=== PATIENT | male | born 1945 | race Two or more races ===

== ENCOUNTER 2018-07-06 09:13 | Emergency (ER) | payer MEDICARE, OTHER ==
[~2018-07-06] VITALS: Ht 167.6 cm; Wt 86.0 kg
[2018-07-06 09:22] VITALS: Ht 167.6 cm; Wt 86.0 kg
[2018-07-06] MEDS ORDERED: ASPIRIN 325 MG TAB PO STA (09:34)
[2018-07-06] MEDS ORDERED: SOD CHLORIDE 0.9% 100 ML ONE (09:36)
[2018-07-06] MEDS ORDERED: IODIXANOL LOCM 100 ML BTL ONE (09:36)
[2018-07-06] MEDS ORDERED: SOD CHLORIDE 0.9% 860 ML IV ONE (10:00)
--- NOTE | 2018-07-06 11:19 | STROKE ---
Date/Time of Note Date/Time of Note DATE: 07/06/18 TIME: 12:05 Patient Information General Arrival Date Age 73 Gender male Weight 86 kg POC Glucose Glucose Result Bedside Glucose - 72 Hours Test 07/06/18 09:25 07/06/18 10:00 Bedside Glucose 166 mg/dL (70-220) 141 mg/dL (70-220) Vital Signs Vital Signs Vital Signs Date Temp Pulse Resp B/P (MAP) Pulse Ox O2 O2 Flow FiO2 Time Delivery Rate 07/06/18 Nasal 09:46 Cannula 07/06/18 97.7 70 18 175/84 97 09:22 (114) Patient History Past Medical History Diabetes Current Medications Allergies: Coded Allergies: No Known Allergy (Verified Allergy, Mild, 04/19/08) Labs Coagulation Labs: Coagulation Test 07/06/18 09:40 Activated Partial Thromboplast Time 23.3 Sec (23.0-35.0) History & Physical Patient History Notes Pt Hx Reviewed History of Present Illness 73 y/o M noted left hand numbness beginning last night at midnight. Awoke this morning and noted L forearm numbness as well. Seen by Primary MD and referred to ER for potential stroke. BG reportedly 500s. Denies Headache, speech or vision difficulty, no incoordination or weakness. No confusion. In ER, teleneuro examination significant only for L hand and forearm decreased sensation NIH Stroke Scale NIH Stroke Scale Facig0Sd l4d LOC Questions: [place]ekak5v LOC Commands: Bscjj5g t Gaze: Oxrld8n Dpprb7m alsy: Caqrq1v rm - Left: Jpkrt1i ight: Pwdym8t eft: Cvnaa4l ight: Xjueb9l Dxgns8i Tavca4i est Language: Rrpge0u holland: Whwgb8y Wlqrw3b ate/Time Recorded DATE: 07/06/18 TIME: 11:15 Submitted By Veronika Gruber t-PA Imaging Review Imaging Reviewed: Yes Date/Time Imaging Reviewed DATE: 07/06/18 TIME: 12:[address] brain unremarkable; CTA/P reportedly shows diffuse atherosclerotic vascular disease, small meningioma, no LVO per radiologist report t-PA Administration Weight 86 kg Recommedation submitted by Veronika Gruber Reason t-PA not Recommended Time of presentation outside therapeutic window t-PA Not Recommended Date/Time Admit for stroke workup to include MRI brain. Telemetry monitoring. Permissive HTN, keep SBP<220 and DBP<110. 2DECHO. Local Neurology when available. Recommendations Recommendation [id number] Diagnostic Labs: Lsuqa7y Lipid Proile Hgb A1C CMP CBC w/Diff Coags Urinaysis Jizpa5Su Therapy: Smgvi0k Physical Therapy Occupational Therapy Vstcp8Ys Misc. Recommendations: Dzouv3q Pnumatic Compression Devices Stroke Education Smoking Education VERONIKA GRUBER MD July 06, 2018 10:19
--- NOTE | 2018-07-06 11:30 | ERD ---
ER Documentation Chief Complaint Chief Complaint hyperglycemia also states left hand numbness HPI This is a 73-year-old male with a past medical history of jhx-rddiwhw-tzdhkdgls diabetes mellitus. The patient indicates that at midnight yesterday evening, 9/2 hours prior to arrival, the patient developed numbness and tingling of his left hand and forearm. Indicated he took his blood glucose and it was elevated at greater than 500. He has not experienced any polyuria or polydipsia. He stated at that time he did double the dose of his antidiabetic medication. He slept comfortably when he awoke this morning he stated he felt the numbness of his left hand and arm still present. He indicated it had not worsened. He denied headache. He denied any weaknesses of his upper or lower extremities. He said no recent fever shaking or chills. He went to his primary care physician's office Dr. Tong. Dr. Gomez and immediately sent the patient to the emergency department to be further evaluated. ROS All systems reviewed and are negative except as per history of present illness. Allergies Allergies: Coded Allergies: No Known Allergy (Verified Allergy, Mild, 04/19/08) PMhx/Soc History of Surgery: No Anesthesia Reaction: No Hx Neurological Disorder: No Hx Respiratory Disorders: No Hx Cardiac Disorders: No Hx Psychiatric Problems: No Hx Miscellaneous Medical Probl: No Hx Alcohol Use: No Hx Substance Use: No Hx Tobacco Use: No Smoking Status: Never smoker Physical Exam Vitals Vital Signs Date Temp Pulse Resp B/P (MAP) Pulse Ox O2 O2 Flow FiO2 Time Delivery Rate 07/06/18 Nasal 09:46 Cannula 07/06/18 97.7 70 18 175/84 97 09:22 (114) Physical Exam Constitutional:Well-developed. Well-nourished. HEENT:Normocephalic. Atraumatic.Pupils were equal round reactive to light. Moist mucous membranes.No tonsillar exudates. Neck: No nuchal rigidity. No lymphadenopathy. No posterior cervical spine tenderness or step-offs. Respiratory: Not using accessory muscles of respiration.Lungs were clear to auscultation bilaterally. No rhonchi. No rales. No wheezing. Cardiovascular: Regular rate regular rhythm.No murmurs. No rubs were appre ciated.S1, S2 normal. Distal pulses are palpable 2+ bilaterally. GI: Abdomen was soft. Nontender. Non Distended. No pulsatile abdominal masses or bruits. No rebound. No guarding. Bowel sounds were present and normal. Muscle skeletal: Full range of motion of both the upper and lower extremities bilaterally.Normal muscle tone.No assymetrical calf tenderness or swelling. Skin: No petechia, no purpura. No lesions on the palms or the soles of the feet. No maculopapular rash. NEURO: Patient was alert, awake, orientated x3.No facial droop. Gait observed and normal with no ataxia.Speech had regular rate and rhythm. No focal neurological deficits. Romberg sign negative. No pronator drift. Sensation to sharp and dull slightly diminished on the dorsal aspect of the left hand. Result Diagram: 07/06/1840 07/06/1840 Results 24 hrs Laboratory Tests Test 07/06/18 09:25 07/06/18 09:40 07/06/18 10:00 Bedside Glucose 166 mg/dL 141 mg/dL White Blood Count 12.5 10^3/ul Red Blood Count 5.01 10^6/ul Hemoglobin 15.3 g/dl Hematocrit 45.0 % Mean Corpuscular Volume 89.8 fl Mean Corpuscular Hemoglobin 30.5 pg Mean Corpuscular Hemoglobin Concent 34.0 g/dl Red Cell Distribution Width 13.3 % Platelet Count 223 10^3/UL Mean Platelet Volume 9.4 fl Immature Granulocytes % 0.900 % Neutrophils % 67.6 % Lymphocytes % 23.2 % Monocytes % 7.6 % Eosinophils % 0.3 % Basophils % 0.4 % Nucleated Red Blood Cells % 0.0 /100WBC Immature Granulocytes # 0.110 10^3/ul Neutrophils # 8.4 10^3/ul Lymphocytes # 2.9 10^3/ul Monocytes # 0.9 10^3/ul Eosinophils # 0.0 10^3/ul Basophils # 0.1 10^3/ul Nucleated Red Blood Cells # 0.0 10^3/ul Prothrombin Time 12.6 Sec Prothrombin Time Ratio 1.0 INR International Normalized Ratio 0.93 Activated Partial Thromboplast Time 23.3 Sec Sodium Level 140 mmol/L Potassium Level 4.5 mmol/L Chloride Level 101 mmol/L Carbon Dioxide Level 28 mmol/L Anion Gap 11 Blood Urea Nitrogen 30 mg/dl Creatinine 1.47 mg/dl Est Glomerular Filtrat Rate mL/min mL/min Glucose Level 154 mg/dl Hemoglobin A1c 8.1 % Calcium Level 10.1 mg/dl Phosphorus Level 4.2 mg/dl Magnesium Level 1.8 mg/dl Total Bilirubin 0.2 mg/dl Direct Bilirubin 0.00 mg/dl Indirect Bilirubin 0.2 mg/dl Aspartate Amino Transf (AST/SGOT) 13 IU/L Alanine Aminotransferase (ALT/SGPT) 15 IU/L Alkaline Phosphatase 54 IU/L Creatine Kinase 44 IU/L Creatine Kinase Index 2.0 Creatinine Kinase MB (Mass) 0.87 ng/ml Troponin I < 0.012 ng/ml Total Protein 7.9 g/dl Albumin 4.5 g/dl Globulin 3.40 g/dl Albumin/Globulin Ratio 1.32 Triglycerides Level 438 mg/dl Cholesterol Level 198 mg/dl LDL Cholesterol, Calculated 68 mg/dl HDL Cholesterol 42 mg/dl Cholesterol/HDL Ratio 4.7 RATIO Ethyl Alcohol Level < 10.0 mg/dl Current Medications Medications Dose Sig/Delonte Start Time Status Last (Trade) Ordered Route PRN Stop Time Admin Dose Reason Admin Aspirin 325 mg ONCE STAT 07/06/18 DC 07/06/18 (Aspirin) PO 09:34 07/06/18 10:19 09:35 IV Flush 10 ml STK-MED 07/06/18 DC 07/06/18 (NS 10 ml) ONCE .ROUTE 09:36 07/06/18 09:50 09:37 Sodium 100 ml @ ud STK-MED 07/06/18 DC 07/06/18 Chloride ONCE .ROUTE 09:36 07/06/18 09:50 09:37 Iodixanol 100 ml STK-MED 07/06/18 DC 07/06/18 (Visipaque ONCE .ROUTE 09:36 07/06/18 09:50 Locm) 09:37 Sodium 860 ml @ ONCE ONCE 07/06/18 DC 07/06/18 Chloride 860 mls/hr IV 10:00 07/06/18 10:19 10:59 Procedures/MDM This is a 73-year-old male with a history of qya-kxkhmfw-uprioszsv diabetes mellitus that presented to the emergency department with numbness of the left hand. A code stroke was immediately called. The patient was taken to undergo a CT scan after being placed on a acid retort operator and IV access had been established. He also had a CTA that was performed. CT scan of the patient's head showed no intracerebral hemorrhage mass-effect or midline shift. The telemetry neurologist also saw the patient. His symptoms appear to be more likely result of possible diabetic neuropathy versus cervical radiculopathy. I spoke with the patient in length. There is no signs of diabetic ketoacidosis his blood glucose was 166. The patient indicated he did not want to be admitted to the hospital to undergo an MRI as he has picked up his grandchildren and several hours. Therefore I spoke with the patient's PCP Dr. Phillips. I felt comfortable discharging the patient is Dr. Ortega will arrange for an outpatient MRI to be performed first thing tomorrow. 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 The patient's symptoms have not worsened. There is no signs of an acute cerebrovascular accident. 12 Lead EKG tracing ordered and reviewed by myself showed: Normal sinus rhythm of 70 bpm and no arrhythmia. IN interval prolonged in all leads at 218 ms with a first-degree AV block QRS duration normal. No ST segment elevation No ST segment depression. No changes consistent with acute ischemia. Critical Care: Time: 40 minutes Treatments/Evaluations: Close monitoring and treatment of unstable vital signs, cardiorespiratory, and neurologic status, while maintaining tight balance of fluid, respiratory, and cardiac interventions. Time does not include performing any of the above billable procedures. Departure Diagnosis: Primary Impression: Hyperglycemia Additional Impression: Paresthesia Condition: Fair Patient Instructions: Paraesthesias Referrals: IKE PHILLIPS (PCP) SMITH BAIRD MD July 06, 2018 11:30
[2018-07-06 11:40] VITALS: BP 183/94; PULSE 65; RESP 20
== END 2018-07-06 11:41 | disposition home or self-care (01) ==
LOC: E/R 09:13
DX: E11.65 Type 2 diabetes mellitus with hyperglycemia (principal); R20.2 Paresthesia of skin
CPT/HCPCS: 36415; 70450; 70496; 70498; 71045; 80053; 80061; 80307; 82550; 82553; 82962; 83036; 83735; 84100; 84484; 85025; 85610; 85730; 86850; 86900; 86901; 93005; 99285; J7030; Q9967

== ENCOUNTER 2018-08-08 11:34 | Emergency (ER) | payer MEDICARE, OTHER ==
[~2018-08-08] VITALS: Ht 170.2 cm; Wt 86.3 kg
[2018-08-08 11:41] VITALS: Ht 170.2 cm; Wt 86.3 kg
[2018-08-08] MEDS ORDERED: morphine 4 MG/ML VIAL IV STA (13:02)
[2018-08-08] MEDS ORDERED: SOD CHLORIDE 0.9% 1,000 ML IV STA (13:02)
[2018-08-08] MEDS ORDERED: ONDANSETRON 4 MG INJ IV STA (13:02)
--- NOTE | 2018-08-08 13:08 | ERD ---
ER Documentation Chief Complaint Chief Complaint rt groin pain radiating to back since last night , h/o hernia HPI This is a very pleasant 73-year-old male with a past medical history of diabetes. The patient's had 7 previous hernia surgeries that began in 1964. His last surgical intervention was in 2001. The patient indicates that yesterday evening he developed severe right flank pain. The pain was 10 out of 10 in intensity. The pain began to radiate to his right groin. He states the pain has been intermittent. The pain prevented him from sleeping throughout the night. He was unable to find a comfortable position. He denies any frequency urgency or dysuria. He denies any hematuria. He states he never had any sim ilar pain in the past. He was concerned that this could be a result of his hernia. He also saw his primary care physician yesterday who was concerned of a hernia. He had prescribed analgesic medication. The patient took 1 pill this morning roughly 5 hours prior to arrival but indicated the pain still is 10 out of 10 in intensity. He had a decrease in appetite but denies any hemoptysis hematemesis no melanotic stools. Patient also indicates that 3 years ago he underwent an MRI of his lumbar spine indicate he had herniated disks. He has had a history of sciatica and does state that this pain feels slightly different and that it now radiates to the right lower quadrant. He does however state that the pain today does radiate to the lateral aspect of his right leg. He has no changes in his bladder or bowel frequency. He denies any saddle anesthesia. ROS All systems reviewed and are negative except as per history of present illness. Medications Home Meds Active Scripts Docusate Sodium* (Colace*) 100 Mg Capsule, 100 MG PO TID PRN for CONSTIPATION, #30 CAP Prov:SMITH BAIRD MD 08/08/18 Hydrocodone/Acetaminophen ([place] 10-325 Tablet) 1 Each Tablet, 1 TAB PO Q6H PRN for PAIN, #20 TAB Prov:SMITH BAIRD MD 08/08/18 Naproxen* (Naprosyn*) 500 Mg Tablet, 500 MG PO BID PRN for PAIN AND/OR INFLAMMATION, #30 TAB Prov:SMITH BAIRD MD 08/08/18 Allergies Allergies: Coded Allergies: No Known Allergy (Verified Allergy, Mild, 04/19/08) PMhx/Soc History of Surgery: No Anesthesia Reaction: No Hx Neurological Disorder: No Hx Respiratory Disorders: No Hx Cardiac Disorders: No Hx Psychiatric Problems: No Hx Miscellaneous Medical Probl: No Hx Alcohol Use: No Hx Substance Use: No Hx Tobacco Use: No Physical Exam Vitals Vital Signs Date Temp Pulse Resp B/P (MAP) Pulse Ox O2 O2 Flow FiO2 Time Delivery Rate 08/08/18 98.3 75 18 139/68 97 15:28 (91) 08/08/18 71 16 140/83 97 14:00 (102) 08/08/18 97.7 79 18 166/81 99 11:41 (109) Physical Exam Constitutional:Well-developed. Well-nourished. HEENT:Normocephalic. Atraumatic.Pupils were equal round reactive to light. Moist mucous membranes. Respiratory: Not using accessory muscles of respiration.Lungs were clear to auscultation bilaterally. No rhonchi. No rales. No wheezing. Cardiovascular: Regular rate regular rhythm.No murmurs. No rubs were appreciated.S1, S2 normal. Distal pulses are palpable 2+ bilaterally. GI: Abdomen was soft. Right CVA tenderness. No tenderness in the right lower quadrant over McBurney's point. Psoas sign negative . obturator sign negative. No inguinal hernias palpable.. Non Distended. No pulsatile abdominal masses or bruits. No rebound. No guarding. Bowel sounds were present and normal. Muscle skeletal: Full range of motion of both the upper and lower extremities bilaterally.Normal muscle tone.No assymetrical calf tenderness or swelling. Straight leg test positive on the right. Negative on the left. NEURO: Patient was alert, awake, orientated x3.No facial droop. Gait observed and normal with no ataxia.Speech had regular rate and rhythm. No focal neurological deficits. Result Diagram: 08/08/18 1306 08/08/18 1306 Results 24 hrs Laboratory Tests Test 08/08/18 13:06 White Blood Count 8.1 10^3/ul Red Blood Count 4.86 10^6/ul Hemoglobin 14.7 g/dl Hematocrit 44.9 % Mean Corpuscular Volume 92.4 fl Mean Corpuscular Hemoglobin 30.2 pg Mean Corpuscular Hemoglobin Concent 32.7 g/dl Red Cell Distribution Width 13.5 % Platelet Count 189 10^3/UL Mean Platelet Volume 9.7 fl Immature Granulocytes % 0.500 % Neutrophils % 61.0 % Lymphocytes % 28.7 % Monocytes % 8.1 % Eosinophils % 1.2 % Basophils % 0.5 % Nucleated Red Blood Cells % 0.0 /100WBC Immature Granulocytes # 0.040 10^3/ul Neutrophils # 4.9 10^3/ul Lymphocytes # 2.3 10^3/ul Monocytes # 0.7 10^3/ul Eosinophils # 0.1 10^3/ul Basophils # 0.0 10^3/ul Nucleated Red Blood Cells # 0.0 10^3/ul Prothrombin Time 12.4 Sec Prothrombin Time Ratio 1.0 INR International Normalized Ratio 0.91 Activated Partial Thromboplast Time 26.9 Sec Urine Color YELLOW Urine Clarity CLEAR Urine pH 5.0 Urine Specific [place] 1.010 Urine Ketones NEGATIVE mg/dL Urine Nitrite NEGATIVE mg/dL Urine Bilirubin NEGATIVE mg/dL Urine Urobilinogen NEGATIVE mg/dL Urine Leukocyte Esterase NEGATIVE Blayne/ul Urine Hemoglobin NEGATIVE mg/dL Urine Glucose NEGATIVE mg/dL Urine Total Protein NEGATIVE mg/dl Sodium Level 143 mmol/L Potassium Level 5.2 mmol/L Chloride Level 106 mmol/L Carbon Dioxide Level 28 mmol/L Anion Gap 9 Blood Urea Nitrogen 18 mg/dl Creatinine 1.55 mg/dl Est Glomerular Filtrat Rate mL/min mL/min Glucose Level 126 mg/dl Calcium Level 10.0 mg/dl Total Bilirubin 0.6 mg/dl Direct Bilirubin 0.00 mg/dl Indirect Bilirubin 0.6 mg/dl Aspartate Amino Transf (AST/SGOT) 18 IU/L Alanine Aminotransferase (ALT/SGPT) 16 IU/L Alkaline Phosphatase 45 IU/L Total Protein 7.9 g/dl Albumin 4.6 g/dl Globulin 3.30 g/dl Albumin/Globulin Ratio 1.39 Amylase Level 92 U/L Lipase 412 U/L Current Medications Medications Dose Sig/Delonte Start Time Status Last (Trade) Ordered Route PRN Stop Time Admin Dose Reason Admin Sodium 1,000 ml @ Q1H STAT 08/08/18 DC 08/08/18 Chloride 1,000 mls/hr IV 13:02 08/08/18 13:19 14:01 Morphine 4 mg ONCE STAT 08/08/18 DC 08/08/18 Sulfate IV 13:02 08/08/18 13:19 (morphine) 13:05 Ondansetron 4 mg ONCE STAT 08/08/18 DC 08/08/18 HCl (Zofran IV 13:02 08/08/18 13:19 Inj) 13:05 Procedures/MDM This patient presented to the emergency department with abdominal pain and was seen and evaluated by myself. My differential diagnosis included but was not limited to abdominal aortic aneurysm, appendicitis, pancreatitis, perforated peptic ulcer, perforated viscus, Boerhaaves syndrome or visceral pain such as diverticulitis, DKA, esophagitis, hepatitis or bowel obstruction. The patient was placed on a cardiac rehabilitation specialist, continuous pulse oximetry, and IV access was established by nursing staff. The patient was given intravenous morphine and Zofran for analgesic control. CT scan of the abdomen without contrast was ordered and reviewed by myself as well as the radiologist and indicate the followin. Small fat-containing right-sided indirect inguinal hernia with prominent varicosities. 2. Diverticulosis. 3. Moderate aortoiliac atherosclerosis. 4. Status post cholecystectomy. 5. Cardiomegaly with trace pericardial effusion. Patient had no evidence of obstructive uropathy. The patient had no severe electrolyte abnormalities. Lipase was slightly elevated at 412 but the patient's physical exam findings were not suggestive of pancreatitis. After receiving the above treatment the patient stated he felt improvement Of his symptoms. I indicated the patient I did not have an exact etiology into his symptoms. I did feel he would benefit from following up with his primary care physician for outpatient colonoscopy in addition to a further MRI of his lumbar spine as I could also not rule out sciatica. There is no evidence of cauda equina syndrome. The patient does have a small indirect inguinal hernia that was not palpable on physical exam. He was given copies of all of his ancillary laboratory work. Departure Diagnosis: Primary Impression: Diverticulosis Additional Impressions: Inguinal hernia Obstruction and gangrene presence: without obstruction or gangrene Laterality: unilateral Recurrence: recurrent Qualified Codes: K40.91 - Unilateral inguinal hernia, without obstruction or gangrene, recurrent Sciatica Laterality: right Qualified Codes: M54.31 - Sciatica, right side Condition: Fair SMITH BAIRD MD Aug 08, 2018 13:08
[2018-08-08 15:28] VITALS: BP 139/68; PULSE 75; RESP 18
[2018-08-08] MEDS ORDERED: NAPR-985 PO (16:02)
[2018-08-08] MEDS ORDERED: DOCU-144 PO (16:02)
[2018-08-08] MEDS ORDERED: HYDR-3980 PO (16:02)
== END 2018-08-08 16:00 | disposition home or self-care (01) ==
LOC: E/R 11:34
DX: K57.90 Diverticulosis of intestine, part unspecified, without perforation or abscess without bleeding (principal); E11.9 Type 2 diabetes mellitus without complications; K40.91 Unilateral inguinal hernia, without obstruction or gangrene, recurrent; M54.31 Sciatica, right side
CPT/HCPCS: 36415; 74176; 80053; 81003; 82150; 83690; 85025; 85610; 85730; 87086; 96361; 96374; 96375; 99285; J2270; J2405; J7030